=== PATIENT | male | born 1960 | race Caucasian/White ===

== ENCOUNTER 2023-07-25 12:51 | Emergency (ER) | payer BC ==
[~2023-07-25] VITALS: Ht 175.3 cm; Wt 78.0 kg
[2023-07-25 13:12] VITALS: O2SAT 96
[2023-07-25] MEDS ORDERED: IV NORMAL SALINE 1000 ML BAG IV ONE (14:00)
[2023-07-25 14:54] LABS: BASOPHILS % (AUTO) 0.2 % (0.0-2.0); EOSINOPHILS # (AUTO) 0.1 K/uL (0.0-0.7); EOSINOPHILS % (AUTO) 0.4 % (0.0-7.0); HEMATOCRIT 41.9 % (36.7-47.1); HEMOGLOBIN 14.4 g/dL (12.5-16.3); LYMPHOCYTES # (AUTO) 2.8 K/uL (0.8-4.8); LYMPHOCYTES % (AUTO) 19.6 % (20.5-51.5); MEAN CORPUSCULAR HEMOGLOBIN 31.2 uug (23.8-33.4); MEAN CORPUSCULAR HGB CONC 34 g/dL (32.5-36.3); MEAN CORPUSCULAR VOLUME 90.8 fL (73.0-96.2); MONOCYTES # (AUTO) 1.4 K/uL (0.1-1.30); MONOCYTES % (AUTO) 10.1 % (0.0-11.0); NEUTROPHILS # (AUTO) 9.9 K/uL (1.8-8.9); NEUTROPHILS % (AUTO) 69.7 % (38.5-71.5); PLATELET COUNT (AUTO) 347 K/uL (152-348); RED BLOOD CELL COUNT(AUTO) 4.62 MIL/uL (4.06-5.63); RED CELL DISTRIBUTION WIDTH 13.4 % (12.1-16.2); WHITE BLOOD COUNT (AUTO) 14.2 K/uL (3.6-10.2)
[2023-07-25 15:04] LABS: DIFFERENTIAL COMMENT 1
[2023-07-25] MEDS ORDERED: levoFLOXacin 750 MG TABLET PO ONE (15:15)
[2023-07-25 15:17] LABS: CALCIUM 10.2 mg/dL (8.5-10.1); CREATININE 1.6 mg/dL (0.6-1.3); POTASSIUM 3.3 mmol/L (3.5-5.1)
[2023-07-25] MEDS ORDERED: LEVO750T46 PO (15:26)
[2023-07-25] MEDS ORDERED: FLAS1KIT2 TP (15:26)
[2023-07-25] MEDS ORDERED: FLAS1EAC2 TP (15:26)
[2023-07-25] MEDS ORDERED: POTASSIUM BICARBONATE/CIT AC 25 MEQ TABLET.EFF PO ONE (15:30)
[2023-07-25] MEDS ORDERED: POTASSIUM BICARBONATE/CIT AC 25 MEQ TABLET.EFF ONE (15:49)
[2023-07-25] MEDS ORDERED: levoFLOXacin 750 MG TABLET ONE (15:49)
== END 2023-07-25 16:30 | disposition home or self-care (01) ==
LOC: ER 12:51
DX: A03.9 Shigellosis, unspecified (principal); E87.6 Hypokalemia; I10 Essential (primary) hypertension; Z79.899 Other long term (current) drug therapy
CPT/HCPCS: 99283; 96360; 80048; 83735; 85025; 87493; 36415; 87045; 87046; 87427; J7040; A4606; A4663